=== PATIENT | male | born 1955 | race Caucasian/White ===

== ENCOUNTER 2024-08-21 06:54 | Day surgery (SDC) | payer MEDICARE, BC ==
[2024-08-21] MEDS ORDERED: Propofol 200 MG/20 ML SDV ONE (07:10)
[2024-08-21] MEDS ORDERED: fentaNYL 100 MCG/2 ML SDV ONE (07:10)
[2024-08-21] MEDS: Lactated Ringers 1,000 ML IV SCH (08:03)
== END 2024-08-21 11:25 | disposition home or self-care (01) ==
LOC: JP.SDS 06:54
PROVIDERS: ATTEND Family Medicine
DX: Z12.11 Encounter for screening for malignant neoplasm of colon (principal); D12.3 Benign neoplasm of transverse colon; D12.5 Benign neoplasm of sigmoid colon; K62.1 Rectal polyp; R19.5 Other fecal abnormalities; I10 Essential (primary) hypertension; F17.200 Nicotine dependence, unspecified, uncomplicated
CPT/HCPCS: 00811; 45380; 45385; 88305; J2704; J3010; J7120